=== PATIENT | female | born 1975 | race Hispanic/Latino ===

== ENCOUNTER 2022-12-23 11:13 | Day surgery (SDC) | payer OTHER ==
[~2022-12-23] VITALS: Ht 170.2 cm; Wt 109.3 kg
[~2022-12-23 11:13] MED LIST: AMLO1TAB24 PO; LIDOCAINE 2% 100MG/5ML SDV (FOR ANES.) As Ordered ONE; NS 1,000 ML IV ONE; OMEP40CA5 PO; propofoL 200 MG/20 ML VIAL As Ordered ONE
[2022-12-23] MEDS ORDERED: propofoL 500 MG/50 ML VIAL As Ordered ONE (13:44)
[2022-12-23 14:25] VITALS: BP 163/80
== END 2022-12-23 14:43 | disposition home or self-care (01) ==
LOC: M OPP 11:13
PROVIDERS: ATTEND Internal Medicine Gastroenterology
DX: K64.0 First degree hemorrhoids (principal); D50.9 Iron deficiency anemia, unspecified; K44.9 Diaphragmatic hernia without obstruction or gangrene; Z98.84 Bariatric surgery status; Z79.899 Other long term (current) drug therapy; Z88.5 Allergy status to narcotic agent; Z80.3 Family history of malignant neoplasm of breast

== ENCOUNTER 2024-01-18 11:58 | Emergency (ER) | payer OTHER ==
[~2024-01-18] VITALS: Ht 170.2 cm; Wt 117.0 kg
[~2024-01-18 11:58] MED LIST changes: -LIDOCAINE 2% 100MG/5ML SDV (FOR ANES.) As Ordered ONE; -NS 1,000 ML IV ONE; -propofoL 200 MG/20 ML VIAL As Ordered ONE
[2024-01-18] MEDS ORDERED: BENA25CA4 PO (12:30)
[2024-01-18] MEDS ORDERED: EXCETAB22 PO (12:30)
[2024-01-18 13:02] LABS: BASO % 0.4 % (0.0-1.0); EOS # 0.2 10^3/uL (0.0-0.5); EOS % 2.3 % (0.0-3.0); HEMATOCRIT 34.9 % (36.0-47.0); HEMOGLOBIN 10.2 g/dl (12.0-15.5); LYMPH # 2.6 10^3/uL (1.5-5.0); LYMPH % 32.4 % (24.0-44.0); MEAN CORPUSCULAR HGB CONC 29.2 g/dl (32.0-36.5); MEAN CORPUSCULAR VOLUME 71.8 fl (80.0-96.0); MONO # 0.8 10^3/uL (0.0-0.8); MONO % 9.4 % (2.0-8.0); NEUTROPHILS # 4.5 10^3/uL (1.5-8.5); NEUTROPHILS % 55.3 % (36.0-66.0); PLATELET COUNT, AUTOMATED 361 10^3/uL (150-450); RED BLOOD COUNT 4.86 10^6/uL (4.00-5.40); WHITE BLOOD COUNT 8.1 10^3/uL (4.0-10.0)
[2024-01-18 13:11] LABS: CK-MB VALUE MASS < 1.0 NG/ML (<3.6)
[2024-01-18 13:12] LABS: BLOOD UREA NITROGEN 11 MG/DL (9-23); CALCIUM LEVEL 8.5 MG/DL (8.5-10.1); CARBON DIOXIDE LEVEL 24 MMOL/L (20-31); CHLORIDE LEVEL 103 MMOL/L (98-107); CPK CREATINE PHOSPHOKINASE 62 U/L (34-145); CREATININE FOR GFR 0.72 MG/DL (0.55-1.30); GLOMERULAR FILTRATION RATE > 60.0 (>58); GLUCOSE, FASTING 102 MG/DL (60-100); MB/CK RELATIVE INDEX 1.61 (< OR =4); POTASSIUM SERUM 3.6 MMOL/L (3.5-5.1); SODIUM LEVEL 137 MMOL/L (136-145)
[2024-01-18 13:51] LABS: LIPASE 57 U/L (12-53)
[2024-01-18 13:52] LABS: HCG, SERUM QUALITATIVE NEGATIVE (NEGATIVE)
[2024-01-18 13:53] LABS: ALBUMIN 3.3 G/DL (3.2-5.2); ALKALINE PHOSPHATASE 118 U/L (46-116); ALT/SGPT 45 U/L (7.0-40); AST/SGOT 48 U/L (<34); BILIRUBIN,DIRECT 0.2 MG/DL (<0.4); BILIRUBIN,TOTAL 0.5 MG/DL (0.3-1.2); TOTAL PROTEIN 6.8 G/DL (5.7-8.2)
[2024-01-18 14:14] LABS: CK-MB VALUE MASS < 1.0 NG/ML (<3.6)
[2024-01-18 14:16] LABS: CPK CREATINE PHOSPHOKINASE 62 U/L (34-145); MB/CK RELATIVE INDEX 1.61 (< OR =4)
[2024-01-18] MEDS ORDERED: ISOVUE-370 76% 100ML VIAL As Ordered ONE (14:21)
[2024-01-18 16:15] VITALS: BP 112/80; O2SAT 98
[2024-01-18] MEDS ORDERED: OMEP40CA4 PO (16:19)
[2024-01-18] MEDS ORDERED: NORV5TAB PO (16:20)
[2024-01-18 16:37] VITALS: TEMP 98.1
== END 2024-01-18 16:38 | disposition home or self-care (01) ==
LOC: M ED 11:58
DX: R07.9 Chest pain, unspecified (principal); G43.909 Migraine, unspecified, not intractable, without status migrainosus; I10 Essential (primary) hypertension; K21.9 Gastro-esophageal reflux disease without esophagitis; F10.10 Alcohol abuse, uncomplicated; Z98.84 Bariatric surgery status; Z88.5 Allergy status to narcotic agent; Z79.82 Long term (current) use of aspirin; Z79.899 Other long term (current) drug therapy
CPT/HCPCS: 36415; 71045; 71275; 74177; 80048; 80076; 82550; 82553; 83690; 84484; 84703; 85025; 93005; 93041; 94760; 99285; Q9967

== ENCOUNTER 2024-11-13 09:40 | Outpatient (CLI) | payer OTHER ==
[~2024-11-13] VITALS: Ht 167.6 cm; Wt 113.0 kg
[~2024-11-13 09:40] MED LIST changes: +ACETAMINOPHEN 325 MG TAB PO ONE; +ALBUTEROL SULFATE 2.5MG/0.5ML INH NEB SOLN INH PRN; +BENA25CA4 PO; +EPINEPHrine INJ 1 MG/ML 1ML AMP IM PRN; +EXCETAB22 PO; +NORV5TAB PO; +OMEP40CA4 PO; +diphenhydrAMINE 50MG/ML VIAL IV PRN; +methylPREDNISolone 125MG 2ML VIAL IV PRN
[2024-11-13 09:45] VITALS: BP 140/67; O2SAT 97
[2024-11-13] MEDS: IRON SUCROSE 300 MG in NS 250 ML IV ONE (09:57)
[2024-11-13 12:05] VITALS: BP 159/81; O2SAT 100
== END 2024-11-13 12:05 ==
LOC: M INFU 09:40
PROVIDERS: ATTEND Nurse Practitioner Primary Care
DX: D64.9 Anemia, unspecified (principal); Z88.5 Allergy status to narcotic agent
CPT/HCPCS: 96365; 96366; J1756

== ENCOUNTER 2024-11-28 14:00 | Outpatient (CLI) | payer OTHER ==
[~2024-11-28] VITALS: Ht 167.6 cm; Wt 120.0 kg
[~2024-11-28 14:00] MED LIST changes: -ACETAMINOPHEN 325 MG TAB PO ONE; +ACETAMINOPHEN 650MG PO PRIOR TO INFUSION PO ONE; +IRON SUCROSE 300 MG in NS 250 ML IV ONE
[2024-11-28] MEDS: IRON SUCROSE 300 MG in NS 250 ML IV ONE (14:18)
[2024-11-28] MEDS: ACETAMINOPHEN 650MG PO PRIOR TO INFUSION PO ONE (14:19)
[2024-11-28 14:34] VITALS: BP 119/59; O2SAT 96
[2024-11-28 16:10] VITALS: BP 133/76; O2SAT 98
== END 2024-11-28 16:10 ==
LOC: M INFU 14:00
PROVIDERS: ATTEND Nurse Practitioner Primary Care
DX: D64.9 Anemia, unspecified (principal); Z88.5 Allergy status to narcotic agent
CPT/HCPCS: 96365; 96366; J1756

== ENCOUNTER 2024-12-05 14:17 | Outpatient (CLI) | payer OTHER ==
[2024-12-05] MEDS: ACETAMINOPHEN 650 MG PO ONE (14:16)
[~2024-12-05 14:17] MED LIST changes: -ACETAMINOPHEN 650MG PO PRIOR TO INFUSION PO ONE; -IRON SUCROSE 300 MG in NS 250 ML IV ONE
[2024-12-05] MEDS: IRON SUCROSE 300 MG in NS 250 ML OVER 90 MIN. IV ONE (14:17)
[2024-12-05 14:28] VITALS: BP 131/70; O2SAT 96
[2024-12-05 16:10] VITALS: BP 141/70; O2SAT 99
== END 2024-12-05 16:10 ==
LOC: M INFU 14:17
PROVIDERS: ATTEND Nurse Practitioner Primary Care
DX: D50.9 Iron deficiency anemia, unspecified (principal); Z88.5 Allergy status to narcotic agent
CPT/HCPCS: 96365; 96366; J1756

== ENCOUNTER → 2025-01-23 | Outpatient (CLI) | payer OTHER ==
[~2025-01-23] MED LIST changes: -ALBUTEROL SULFATE 2.5MG/0.5ML INH NEB SOLN INH PRN; -EPINEPHrine INJ 1 MG/ML 1ML AMP IM PRN; +LIDOCAINE 1% MDV 20ML VIAL As Ordered ONE; -diphenhydrAMINE 50MG/ML VIAL IV PRN; -methylPREDNISolone 125MG 2ML VIAL IV PRN
[2025-01-23 12:40] VITALS: TEMP 97.8
[2025-01-23 13:12] VITALS: BP 162/96; O2SAT 98
== END ==
LOC: M IRPRO 12:24
PROVIDERS: ATTEND Otolaryngology
DX: E04.1 Nontoxic single thyroid nodule (principal)